=== PATIENT | male | born 1950 | race Caucasian/White ===

== ENCOUNTER 2017-10-02 08:06 | Outpatient (CLI) | payer MEDICARE, OTHER ==
--- NOTE | 2017-10-02 12:29 | CT ---
CTA OF THE CHEST WITH CONTRAST: COMPARISON: 09/28/16. HISTORY: Thoracic aneurysm. TECHNIQUE: Multiple contiguous axial images were obtained in a CTA of the chest with contrast. Three-D sagittal and coronal MIP reformats were performed. FINDINGS: The ascending aorta is ectatic and measures 4.9 cm in greatest dimension. This has not significantly changed compared to the prior examination. The aortic arch and descending thoracic aorta are normal in caliber without evidence of enlargement. Atherosclerotic calcifications are seen in the aorta and coronary arteries. No hilar or mediastinal lymphadenopathy are seen. The heart is normal in size without focal cardiac abnormality. A calcified granuloma is seen in the left upper lobe. There is a stable right lower lobe pulmonary n odule measuring approximately 5 mm in greatest dimension. No suspicious pulmonary nodules are identi fied. No pneumothorax or pleural effusion is seen. Degenerative changes are seen in the spine. The visualized subdiaphragmatic structures are unremarka ble. The chest wall soft tissues are unremarkable. IMPRESSION: 1. Stable ectasia of the ascending aorta. 2. Stable right lower lobe pulmonary nodule. POS: [facility]
[2017-10-02] MEDS ORDERED: ISOVUE-370 76%-LOCM 1 ML ONE (17:17)
== END 2017-10-02 08:07 | disposition home or self-care (01) ==
LOC: CT 08:06
PROVIDERS: ATTEND Thoracic Surgery (Cardiothoracic Vascular Surgery)
DX: I71.2 Thoracic aortic aneurysm, without rupture (principal); R91.1 Solitary pulmonary nodule
CPT/HCPCS: 71275

== ENCOUNTER 2018-04-02 20:30 | Outpatient (CLI) | payer MEDICARE, OTHER | END 2018-04-02 20:31 | disposition home or self-care (01) | LOC: SLEEPLAB 20:30 | PROVIDERS: ATTEND Internal Medicine Critical Care Medicine | DX: G47.33 Obstructive sleep apnea (adult) (pediatric) (principal); E66.9 Obesity, unspecified; I10 Essential (primary) hypertension; R35.1 Nocturia | CPT/HCPCS: 95811 ==

== ENCOUNTER 2018-05-14 07:06 | Outpatient (CLI) | payer MEDICARE, OTHER | END 2018-05-14 07:07 | disposition home or self-care (01) | LOC: BICULT 07:06 | PROVIDERS: ATTEND Family Medicine | DX: Z13.6 Encounter for screening for cardiovascular disorders (principal); I77.811 Abdominal aortic ectasia; I72.3 Aneurysm of iliac artery | CPT/HCPCS: 76775 ==

== ENCOUNTER 2018-09-20 08:11 | Outpatient (CLI) | payer MEDICARE, OTHER ==
--- NOTE | 2018-09-20 09:36 | CT ---
PRE AND POSTCONTRAST ENHANCED CTA CHEST: TECHNIQUE: Two-D and 3D reconstructed images performed on an independent 3D work station. HISTORY: History of thoracic aortic aneurysm without rupture. Hypertension. FINDINGS: Pre- and postcontrast-enhanced CTA of the chest performed. Comparison is made to previous exam from 10/02/2017. Images demonstrate calcification of the thoracic aorta. The maximum ascending aorta diameter measure s approximately 4.7 x 4.6 cm, not significantly changed since the previous comparison CTA where measu rements of 4.7 x 4.6 cm were obtained. No evidence of aortic dissection seen. The descending aorta is of normal caliber with some nonathero sclerotic plaques within it. Coronary artery calcifications seen. No definite evidence of mediastinal, hilar, or axillary lymphadenopathy seen. Calcified granuloma is seen in the left upper lobe as well as stable soft tissue lung parenchymal nodule in the right lower lobe similar diameter. IMPRESSION: Stable CTA appearance of the chest. The thoracic aorta is unchanged since the previous comparison CT A from approximately 1 year earlier. POS: [facility]
[2018-09-20] MEDS ORDERED: ISOVUE-370 76%-LOCM 1 ML ONE (13:15)
== END 2018-09-20 08:12 | disposition home or self-care (01) ==
LOC: BICCT 08:11
PROVIDERS: ATTEND Internal Medicine Cardiovascular Disease
DX: I71.2 Thoracic aortic aneurysm, without rupture (principal); I10 Essential (primary) hypertension; R53.83 Other fatigue
CPT/HCPCS: 71275; 82565

== ENCOUNTER 2018-11-07 08:14 | Outpatient (CLI) | payer MEDICARE, OTHER ==
--- NOTE | 2018-11-07 09:05 | ULT ---
ABDOMINAL AORTIC ULTRASOUND: History: Evaluation of abdominal aortic aneurysm. Comparison: 05-14-18 FINDINGS: AP measurements of the proximal abdominal aorta on today's examination were 2 cm, mid portion measure d 3 cm and distal measurement of 3.3 cm in AP dimension were obtained. IMPRESSION: 3.3 cm infrarenal abdominal aortic aneurysm. The very distal of the aorta is very difficult to visual ize on today's examination but in comparing the images I believe that the aneurysm is stable in size. POS: [facility]
== END 2018-11-07 08:15 | disposition home or self-care (01) ==
LOC: BICULT 08:14
PROVIDERS: ATTEND Family Medicine
DX: I71.4 Abdominal aortic aneurysm, without rupture (principal)
CPT/HCPCS: 76706

== ENCOUNTER 2019-02-09 16:58 | Emergency (ER) | payer MEDICARE, OTHER ==
--- NOTE | 2019-02-09 17:33 | RAD ---
EXAM: XR Hand Rt 3 View STANDARD PROVIDED CLINICAL HISTORY: Right hand injury after working on a grinder dresser. Hand swelling and bleeding. COMPARISON: None FINDINGS: No acute fracture or dislocation is seen involving the right hand. Tiny corticated osseous densities are seen adjacent ulnar styloid process may represent remote tiny avulsion injuries. No other osseous abnormalities. IMPRESSION: No acute osseous abnormality right hand.
== END 2019-02-09 18:05 | disposition home or self-care (01) ==
LOC: ERS 16:58
DX: S60.221A Contusion of right hand, initial encounter (principal); E78.5 Hyperlipidemia, unspecified; I10 Essential (primary) hypertension; F17.210 Nicotine dependence, cigarettes, uncomplicated; W23.0XXA Caught, crushed, jammed, or pinched between moving objects, initial encounter

== ENCOUNTER 2019-05-23 07:23 | Outpatient (CLI) | payer MEDICARE, OTHER ==
--- NOTE | 2019-05-23 12:19 | CT ---
CT THORAX NONCONTRAST: (LOW DOSE CT LUNG SCREENIN) DATE: 05/23/19 HISTORY: 68-year-old male with smoking. COMPARISON: 05/09/17. FINDINGS: The previously mentioned 4 - 5 mm pulmonary nodule in the superior segment of the right lower lobe saldana s increased in size, currently measuring 10 x 6 x 4 mm (axial image 163 of 265, series 2; coronal boogie ge 103 of 155, series 400; sagittal image 41 of 196, series 401). The superior surface appears to be flat and the margins are well circumscribed, suggesting that this could possibly be an intraparenchym al pulmonary lymph node. However, the interval growth is concerning. Again noted are the tiny calcified granulomata, one in the left lower lobe and one in the left upper lobe. There are no new pulmonary nodules. Ectasia of ascending thoracic aorta without aneurysm. Mild to moderate calcification at LAD and LCX. No cardiomegaly, pericardial effusion, bullae, high grade c entrilobular emphysematous changes, mediastinal lymphadenopathy, or pneumothorax. Trachea and bilater al mainstem bronchi are patent and clear. IMPRESSION: 1. Lung-RADS category 4B (suspicious, greater than 15% change of malignancy). 2. Interval growth of pulmonary nodule in superior segment of right lower lobe, now 10 mm. 3. This is not amenable to CT guided percutaneous biopsy. 4. Recommend further evaluation with PET scan. CODE T. JN R POS: [facility]
== END 2019-05-23 07:24 | disposition home or self-care (01) ==
LOC: CT 07:23
PROVIDERS: ATTEND Physician Assistant
DX: F17.210 Nicotine dependence, cigarettes, uncomplicated (principal)
CPT/HCPCS: G0297

== ENCOUNTER 2019-06-06 08:34 | Outpatient (CLI) | payer MEDICARE, OTHER ==
--- NOTE | 2019-06-06 10:50 | PET ---
Nuclear medicine FDG PET/CT: (Positron emission tomography and computed tomography) DATE: 06/06/2019 HISTORY: 68-year-old male with solitary pulmonary nodule which has undergone interval growth. COMPARISON: no prior PET TECHNIQUE: IV injection of F-18 fluorodeoxyglucose (FDG) dose: 11.7 mCi. PET scan and attenuation correction CT performed from skull base to proximal thighs. FINDINGS: SUV (standard uptake values) numbers given are maximum SUVs. QCLR used. The right lower lobe pulmonary nodule is not FDG-avid (SUV 0.9). There are no FDG-avid lesions anywhere in the neck, chest, abdomen, pelvis, or skeleton. IMPRESSION: 1) negative PET scan. The right lower lobe pulmonary nodule is not FDG-avid. 2) recommend continued follow-up of the right lower lobe pulmonary nodule with low dose screening renaldo st CT, with the next one in 6 months.
== END 2019-06-06 08:35 | disposition home or self-care (01) ==
LOC: PET 08:34
PROVIDERS: ATTEND Internal Medicine Critical Care Medicine
DX: R91.1 Solitary pulmonary nodule (principal)
CPT/HCPCS: 78815; A9552

== ENCOUNTER 2019-10-11 12:26 | Outpatient (CLI) | payer MEDICARE, OTHER ==
--- NOTE | 2019-10-11 12:53 | CT ---
CT HEAD WITHOUT CONTRAST: INDICATIONS: Headache. COMPARISON: None. FINDINGS: Mild cortical volume loss. No evidence of intracranial mass or hemorrhage. No evidence of acute infar ct. There is a focal lucency in the left basal ganglia, near the anterior limb of the internal capsul e, possibly representing an old lacunar infarct. No significant ischemic white matter change. Mild mu cosal edema in the ethmoid air cells. Paranasal sinuses are otherwise well aerated. IMPRESSION: No evidence of acute process. POS: [facility]
== END 2019-10-11 12:27 | disposition home or self-care (01) ==
LOC: BICCT 12:26
PROVIDERS: ATTEND Family Medicine
DX: R51 Headache (principal)
CPT/HCPCS: 70450

== ENCOUNTER 2019-10-30 10:34 | Outpatient (CLI) | payer MEDICARE, OTHER ==
--- NOTE | 2019-10-30 11:49 | RAD ---
CERVICAL SPINE FOUR VIEWS: HISTORY: Headache. Dizziness. FINDINGS: There is loss of cervical lordosis with straightening of the cervical spine. Degenerative changes are seen, most prominent at the C5-C6 level. No fracture, subluxation or bony destruction is seen. IMPRESSION: Cervical spondylosis. POS: [facility]
== END 2019-10-30 10:35 | disposition home or self-care (01) ==
LOC: SCSRAD 10:34
PROVIDERS: ATTEND Psychiatry & Neurology Neurology
DX: R51 Headache (principal); M47.812 Spondylosis without myelopathy or radiculopathy, cervical region
CPT/HCPCS: 72040

== ENCOUNTER 2019-11-11 13:49 | Outpatient (CLI) | payer MEDICARE, OTHER ==
[~2019-11-11 13:49] MED LIST: ISOVUE-370 76%-LOCM 1 ML ONE
--- NOTE | 2019-11-11 14:59 | CT ---
CT ANGIOGRAM THORAX WITH IV CONTRAST AND 3-D RECONSTRUCTIONS CLINICAL INDICATION: Follow-up thoracic aortic aneurysm. COMPARISON: 09/20/2018 FINDINGS: Pulmonary arteries: No filling defects are seen within the central pulmonary arteries to suggest a pu lmonary was. Segmental and subsegmental pulmonary arteries are not well opacified as this study was tailored for evaluation of the thoracic aorta. Aorta: The ascending thoracic aorta measures 4.9 cm x 4.7 cm with prior measurement of 4.8 cm x 4.6 c m. Descending thoracic aorta is normal in caliber. Mild atherosclerotic plaque and calcifications are seen in the thoracic aorta. No aortic dissection is identified. Lungs: There is a stable right upper lobe pulmonary nodule measuring 8 mm which is unchanged in size dating back to study on 10/02/2017. No additional pulmonary nodule or mass is seen. Left upper and left lower lobe calcified granulomata are again identified. Mediastinum: No enlarged lymph nodes are seen by CT size criteria. Thyroid gland: A subcentimeter hypodense nodule is seen in the right lobe of the thyroid gland stable in size and appearance compared to study in 2017. Osseous structures: Degenerative changes are seen in the spine. Chest wall: No abnormality visualized. Upper abdomen: Calcified granuloma is again seen in the spleen. Liver does demonstrate mild diminishe d attenuation, and although precontrast imaging was not obtained, findings are suggestive of mild fatty infiltration liver. IMPRESSION: 1. Ascending thoracic aortic aneurysm measuring 4.9 cm x 4.7 cm with greatest dimensions on prior sarah dy of 4.8 cm x 4.6 cm 2. Stable right lower lobe pulmonary nodule.
== END 2019-11-11 13:50 | disposition home or self-care (01) ==
LOC: BICCT 13:49
PROVIDERS: ATTEND Internal Medicine Cardiovascular Disease
DX: I71.2 Thoracic aortic aneurysm, without rupture (principal); R91.1 Solitary pulmonary nodule
CPT/HCPCS: 71275; 82565; Q9966

== ENCOUNTER 2019-12-11 09:37 | Outpatient (CLI) | payer MEDICARE ==
--- NOTE | 2019-12-11 11:57 | CT ---
CT CHEST PERFORMED WITHOUT CONTRAST ENHANCEMENT: Date: 12/11/2019 HISTORY: Follow-up of lung nodule. COMPARISON: 04/12/2016 CT examination. Review of an 06/12/2019 and 10/24/2019 exams. FINDINGS: The lungs are clear of any infiltrative process. The right lower lobe pulmonary nodule measures 8.0 m m in size and appears stable as compared to the two more recent examinations. No new pulmonary nodule s are identified. No significant mediastinal adenopathy. Coronary calcifications are present. The ascending aorta measu res 4.6 cm. IMPRESSION: 1. Stable right lower lobe pulmonary nodule. 2. Stable appearance of mild aneurysmal dilatation of ascending aorta. 3. Coronary calcifications. POS: [facility]
== END 2019-12-11 09:38 | disposition home or self-care (01) ==
LOC: BICCT 09:37
PROVIDERS: ATTEND Internal Medicine Critical Care Medicine
DX: R91.1 Solitary pulmonary nodule (principal); I25.10 Atherosclerotic heart disease of native coronary artery without angina pectoris
CPT/HCPCS: 71250

== ENCOUNTER 2020-11-06 08:13 | Outpatient (CLI) | payer MEDICARE, OTHER ==
--- NOTE | 2020-11-06 10:22 | CT ---
CT ANGIOGRAM THORAX WITH IV CONTRAST AND 3-D RECONSTRUCTIONS CLINICAL INDICATION: Annual assessment of thoracic aortic aneurysm. COMPARISON: 11/11/2019 FINDINGS: Pulmonary arteries: No filling defects are seen in the pulmonary arteries to suggest a pulmonary embo claire. Aorta: Again noted is aneurysmal dilatation of the ascending thoracic aorta with a diameter of 4.8 cm . Measurements on prior study were 4.9 cm x 4.7 cm. There is no evidence of a thoracic aortic dissection. Vascular calcifications are seen in the aortic arch with mild eccentric atherosclerotic p laque in the ascending as well as descending thoracic aorta. Lungs: Calcified granuloma is again seen in the left upper lobe. There is a right lower lobe pulmonar y nodule measuring 8 mm stable in size compared to study on 11/11/2019. This pulmonary nodule measured approximately 7 mm on a study in 2018. Mediastinum: No enlarged lymph nodes are seen by CT size criteria. Thyroid gland: Small ill-defined focus of diminished attenuation right lobe of thyroid gland. A discr ete nodule is difficult to discern. Similar finding was seen on prior exam. Osseous structures: There are prominent degenerative changes at the sternomanubrial junction with pos terior osteophytes present. Chest wall: No abnormality visualized. Upper abdomen: Postoperative changes related to right hemicolectomy are seen. Calcified granuloma is seen in the spleen. Mild symmetric nonspecific bilateral perinephric stranding is identified. The abdominal aorta is incompletely imaged, there is evidence of an infrarenal abdominal aortic aneurysm measuring 3.7 cm x 3.6 cm. The abdominal aortic aneurysm measured 3.7 cm x 3.5 cm on PET/CT exam on 06/06/2019. IMPRESSION: 1. Overall stable size of ascending thoracic aortic aneurysm with diameter 4.8 cm. 2. Infrarenal abdominal aortic aneurysm with greatest dimension of 3.7 cm. This is overall similar in size compared to study on 06/06/2019. 3. Right lower lobe pulmonary nodule stable in size compared to study in 2020.
== END 2020-11-06 08:14 | disposition home or self-care (01) ==
LOC: BICCT 08:13
PROVIDERS: ATTEND Internal Medicine Cardiovascular Disease
DX: I71.2 Thoracic aortic aneurysm, without rupture (principal); I71.4 Abdominal aortic aneurysm, without rupture; R91.1 Solitary pulmonary nodule
CPT/HCPCS: 71275; 82565

== ENCOUNTER 2021-12-06 08:09 | Outpatient (CLI) | payer MEDICARE, OTHER ==
[2021-12-06] MEDS ORDERED: Iopamidol 370 76% 100 ML VIAL ONE (09:30)
== END 2021-12-06 08:10 | disposition home or self-care (01) ==
LOC: CT 08:09
PROVIDERS: ATTEND Internal Medicine Cardiovascular Disease
DX: I71.2 Thoracic aortic aneurysm, without rupture (principal); R91.1 Solitary pulmonary nodule
CPT/HCPCS: 71275; 82565

== ENCOUNTER 2022-11-25 09:27 | Outpatient (CLI) | payer MEDICARE ==
[2022-11-25] MEDS ORDERED: Iopamidol 370 76% 100 ML VIAL ONE (10:32)
== END 2022-11-25 09:28 | disposition home or self-care (01) ==
LOC: BICCT 09:27
PROVIDERS: ATTEND Internal Medicine Cardiovascular Disease
DX: I71.20 Thoracic aortic aneurysm, without rupture, unspecified (principal); R91.1 Solitary pulmonary nodule
CPT/HCPCS: 71275; 82565

== ENCOUNTER 2023-11-29 07:43 | Outpatient (CLI) | payer MEDICARE, OTHER ==
[2023-11-29] MEDS ORDERED: Iopamidol-370 76% 500 ML MDV (1 ML CHARGE) ONE (11:06)
== END 2023-11-29 07:44 | disposition home or self-care (01) ==
LOC: BICCT 07:43
PROVIDERS: ATTEND Internal Medicine Cardiovascular Disease
DX: I25.10 Atherosclerotic heart disease of native coronary artery without angina pectoris (principal); I71.21 Aneurysm of the ascending aorta, without rupture; R91.8 Other nonspecific abnormal finding of lung field
CPT/HCPCS: 36415; 71275; 80061; 82565; Q9967

== ENCOUNTER 2025-07-16 13:05 | Outpatient (CLI) | payer MEDICARE ==
[2025-07-16 15:25] LABS: #Basophils 0.09 10x3/uL (0.0-0.2); #Eosinophils 0.20 10x3/uL (0.0-0.7); #Monocytes 0.74 10x3/uL (0.11-0.59); #Neutrophils 5.36 10x3/uL (1.40-6.50); %Basophils 1.1 % (0.0-1.0); %Eosinophils 2.5 % (0.0-10.0); %Lymphocytes 21.0 % (21.0-51.0); %Monocytes 9.1 % (0.0-10.0); %Neutrophils 65.8 % (42.0-75.0); Hematocrit 43.5 % (42.0-52.0); Hemoglobin 14.7 g/dL (14.0-18.0); Mean Corpuscular Hemoglobin 31.4 pg (27.0-31.0); Mean Corpuscular Volume 92.9 fL (78.0-98.0); Platelet Count 294 10x3/uL (130-400); Red Blood Cell (RBC) Count 4.68 mill/uL (4.70-6.10); White Blood Cell (WBC) Count 8.14 10x3/uL (4.8-10.8)
[2025-07-16 15:39] LABS: INR-International Normal Ratio 1.0; PTT 29.5 sec (22.9-36.1); Prothrombin Time 13.2 sec (12.0-14.7)
[2025-07-16 15:48] LABS: Anion Gap 12 mmol/L (10-20); BUN (Urea Nitrogen) 14 mg/dL (8.4-25.7); Calc. Creatinine Clearance 0 mL/min (70-130); Calcium 10.0 mg/dL (7.8-10.44); Carbon Dioxide 28 mmol/L (23-31); Chloride 97 mmol/L (98-107); Glucose 107 mg/dL (83-110); Potassium 3.6 mmol/L (3.5-5.1); Sodium 133 mmol/L (136-145)
== END 2025-07-16 13:06 | disposition home or self-care (01) ==
LOC: LABBT 13:05
PROVIDERS: ATTEND Neurological Surgery
DX: Z01.818 Encounter for other preprocedural examination (principal); M48.061 Spinal stenosis, lumbar region without neurogenic claudication
CPT/HCPCS: 80048; 85025; 85610; 85730; 93005; 93010

== ENCOUNTER 2025-07-22 08:47 | Day surgery (SDC) | payer MEDICARE ==
[2025-07-16 13:21] VITALS: BMI 29.8
[2025-07-22] MEDS ORDERED: Lidocaine 1% PF 5 ML VIAL ONE (09:14)
[2025-07-22] MEDS ORDERED: Rocuronium Bromide 10 MG/ML (10ML VIAL) ONE (09:14)
[2025-07-22] MEDS ORDERED: fentaNYL PF 100 MCG/2 ML SYRINGE ONE (09:14)
[2025-07-22] MEDS ORDERED: PROPOFOL 20 ML ONE (09:14)
[2025-07-22] MEDS ORDERED: Thrombin 5000 UNITS/5 ML VIAL ONE (09:49)
[2025-07-22] MEDS ORDERED: CEFAZOLIN 2 GM VIAL ONE (09:59)
[2025-07-22] MEDS ORDERED: PHENYLEPHRINE-NS 100 MCG/ML 10 ML SYRINGE ONE (11:26)
[2025-07-22] MEDS ORDERED: HYDROmorphone 2 MG/ML VIAL ONE (12:12)
[2025-07-22] MEDS ORDERED: SUGAMMADEX SODIUM 200 MG/2 ML VIAL ONE (12:12)
== END 2025-07-22 15:48 | disposition home or self-care (01) ==
LOC: SDC 08:47
PROVIDERS: ATTEND Neurological Surgery
PROC: 01NB0ZZ Release Lumbar Nerve, Open Approach (ICD-10-PCS; principal; 2025-07-22)
DX: M48.062 Spinal stenosis, lumbar region with neurogenic claudication (principal); I10 Essential (primary) hypertension; E78.5 Hyperlipidemia, unspecified; Z87.891 Personal history of nicotine dependence; Z98.41 Cataract extraction status, right eye; Z98.42 Cataract extraction status, left eye; Z79.899 Other long term (current) drug therapy
CPT/HCPCS: 63047; 63048 ×2; J0169; J0665; J1100; J1171; J2704; J3373

== ENCOUNTER 2025-09-02 08:23 | Outpatient (CLI) | payer MEDICARE | END 2025-09-02 08:24 | disposition home or self-care (01) | LOC: RAD 08:23 | PROVIDERS: ATTEND Internal Medicine Critical Care Medicine | DX: R06.00 Dyspnea, unspecified (principal); I51.7 Cardiomegaly; J44.9 Chronic obstructive pulmonary disease, unspecified | CPT/HCPCS: 71046 ==